=== PATIENT | male | born 2000 | race Caucasian/White ===

== ENCOUNTER 2023-05-15 16:52 | Emergency (ER) | payer SELFPAY ==
[2023-05-15 17:00] VITALS: BP 153/98; PULSE 76; RESP 18; TEMP 37.4; O2SAT 99; BMI 30.7
--- NOTE | 2023-05-15 17:07 | ED.WOUNDLAC1 ---
Documented by User: PURNIMA Boone 05/15/23 17:33 HPI - Wound/Laceration General Chief Complaint: Wound/Laceration Stated Complaint: lACERATION Time Seen by Provider: 05/15/23 16:54 Source: patient Mode of arrival: walk-in Limitations: no limitations History of Present Illness HPI narrative: Patient is a 23-year-old male who presents to the emergency department for a laceration to the middle phalanx of the right index finger. He is left-hand dominant. He was cutting meat with a knife just prior to arrival. No numbness or tingling. No medications taken prior to arrival. Bleeding is controlled at this time. Last tetanus was about 5 years ago, patient is not exactly sure. Related Data Home Medications Medication Instructions Recorded Confirmed No Known Home Medications 05/15/23 05/15/23 Allergies Allergy/AdvReac Type Severity Reaction Status Date / Time No Known Drug Allergies Allergy Verified 05/15/23 17:00 Review of Systems ROS Constitutional Denies: fever or chills Ears, nose, mouth, and throat Denies: throat pain or nasal congestion Cardiovascular Denies: chest pain Respiratory Denies: shortness of breath or cough Gastrointestinal Denies: nausea or vomiting Integumentary/Breast Denies: rash Neurological Denies: headache Endocrine Denies: excessive urination Hematologic/Lymphatic Denies: easy bruising or easy bleeding [facility] Social History Smoking status: Former smoker Exam Narrative Exam Narrative: Gen.: Awake, alert, in no distress Head: Normocephalic, atraumatic ENT: Moist mucous membranes Respiratory: No respiratory distress Extremities: Moves extremities equally, 1.5 cm laceration that is oblique extending minimally into the subcutaneous tissue of the right index finger, middle phalanx, dorsal aspect. No tendon exposure. No bony exposure. Normal flexion and extension at the DIP and PIP joints with no evidence of tendon deficit. No active bleeding at this time. Psych: Normal mood and affect Neuro: No focal neuro deficit Skin: Warm, dry, intact Constitutional Vital Signs, click to edit/add: Last Vital Signs Temp 99.4 F 05/15/23 17:00 Pulse 76 05/15/23 17:00 Resp 18 05/15/23 17:00 BP 153/98 H 05/15/23 17:00 Pulse Ox 99 05/15/23 17:00 O2 Del Method Room Air 05/15/23 17:00 Course Vital Signs Vital signs: Vital Signs Temperature 99.4 F 05/15/23 17:00 Pulse Rate 76 05/15/23 17:00 Respiratory Rate 18 05/15/23 17:00 Blood Pressure 153/98 H 05/15/23 17:00 Pulse Oximetry 99 05/15/23 17:00 Oxygen Delivery Method Room Air 05/15/23 17:00 Temperature 99.4 F 05/15/23 17:00 Pulse Rate 76 05/15/23 17:00 Respiratory Rate 18 05/15/23 17:00 Blood Pressure 153/98 H 05/15/23 17:00 Pulse Oximetry 99 05/15/23 17:00 Oxygen Delivery Method Room Air 05/15/23 17:00 MDM - Wound/Laceration MDM Narrative Medical decision making narrative: Tetanus updated and sutures placed, please see procedure note for details. Follow-up with PCP or urgent care for suture removal and return to the ER if symptoms change or worsen. Laceration repair: Done under sterile conditions. The use of Shur-Clens prep the area. Local injection with lidocaine 1% was used, approximately 2 cc. The wound was irrigated copiously with normal saline. The wound was explored there was no evidence of foreign material. The laceration was approximated with 3-0 nylon. 3 simple interrupted sutures were placed. Patient tolerated the procedure well. The patient was neurovascularly intact post. the patient had bacitracin applied to the laceration and a dry sterile dressing was place. The patient will need to follow-up in the next 8-10 days for removal Medical Records Attestation: I reviewed the patient's medical records. Discharge Plan Discharge Chief Complaint: Wound/Laceration Clinical Impression: Finger laceration Patient Disposition: Home, Self-Care Time of Disposition Decision: 17:31 Condition: Good Prescriptions / Home Meds: No Action No Known Home Medications Instructions: Finger Laceration (ED) Additional Instructions: Sutures removed in 8-10 days Stand Alone Forms: Portal Instructions Referrals: Physician,Non-Staff, MD [Primary Care Provider] - 1 week Discharge Date/Time: 05/15/23 17:40 Documented by User: Han Jolly MD 05/15/23 20:43 HPI - Wound/Laceration General Chief Complaint: Wound/Laceration Stated Complaint: lACERATION Time Seen by Provider: 05/15/23 16:54 Related Data Home Medications Medication Instructions Recorded Confirmed No Known Home Medications 05/15/23 05/15/23 Allergies Allergy/AdvReac Type Severity Reaction Status Date / Time No Known Drug Allergies Allergy Verified 05/15/23 17:00 [facility] Social History Smoking status: Former smoker Exam Constitutional Vital Signs, click to edit/add: Last Vital Signs Temp 99.4 F 05/15/23 17:00 Pulse 76 05/15/23 17:00 Resp 18 05/15/23 17:00 BP 153/98 H 05/15/23 17:00 Pulse Ox 99 05/15/23 17:00 O2 Del Method Room Air 05/15/23 17:00 Course Vital Signs Vital signs: Vital Signs Temperature 99.4 F 05/15/23 17:00 Pulse Rate 76 05/15/23 17:00 Respiratory Rate 18 05/15/23 17:00 Blood Pressure 153/98 H 05/15/23 17:00 Pulse Oximetry 99 05/15/23 17:00 Oxygen Delivery Method Room Air 05/15/23 17:00 Temperature 99.4 F 05/15/23 17:00 Pulse Rate 76 05/15/23 17:00 Respiratory Rate 18 05/15/23 17:00 Blood Pressure 153/98 H 05/15/23 17:00 Pulse Oximetry 99 05/15/23 17:00 Oxygen Delivery Method Room Air 05/15/23 17:00 MDM - Wound/Laceration MDM Narrative Medical decision making narrative: Tetanus updated and sutures placed, please see procedure note for details. Follow-up with PCP or urgent care for suture removal and return to the ER if symptoms change or worsen. Laceration repair: Done under sterile conditions. The use of Shur-Clens prep the area. Local injection with lidocaine 1% was used, approximately 2 cc. The wound was irrigated copiously with normal saline. The wound was explored there was no evidence of foreign material. The laceration was approximated with 3-0 nylon. 3 simple interrupted sutures were placed. Patient tolerated the procedure well. The patient was neurovascularly intact post. the patient had bacitracin applied to the laceration and a dry sterile dressing was place. The patient will need to follow-up in the next 8-10 days for removal I, Dr Jolly, have reviewed the above progress note and course of action in the ER; agree with the above. I have personally gone over history and physical, and discussed disposition and treatment plan with the patient. Discharge Plan Discharge Chief Complaint: Wound/Laceration Clinical Impression: Finger laceration Patient Disposition: Home, Self-Care Time of Disposition Decision: 17:31 Condition: Good Prescriptions / Home Meds: No Action No Known Home Medications Instructions: Finger Laceration (ED) Additional Instructions: Sutures removed in 8-10 days Stand Alone Forms: Portal Instructions Referrals: Physician,Non-Staff, MD [Primary Care Provider] - 1 week Discharge Date/Time: 05/15/23 17:40
[2023-05-15] MEDS: ADACEL DIPH,PERTUSS(ACELL),TET VAC/PF 0.5 ML ADULT SYRINGE IM (17:30)
[2023-05-15] MEDS: LIDOCAINE HCL 1% 100 MG/10 ML MDV INJ (17:30)
[2023-05-15] MEDS: BACITRACIN 0.9 GM PACKET 1 PACKET TOPICAL (17:35)
== END 2023-05-15 17:40 | disposition home or self-care (01) ==
PROVIDERS: Emergency Provider Emergency Medicine
DX: S61.210A Laceration without foreign body of right index finger without damage to nail, initial encounter (principal); W26.0XXA Contact with knife, initial encounter; Z23 Encounter for immunization; Z87.891 Personal history of nicotine dependence
CPT/HCPCS: 12001; 90471; 90715; 99284